=== PATIENT | female | born 1990 | race Caucasian/White ===

== ENCOUNTER → 2016-12-24 | Outpatient (CLI) | payer BC, OTHER ==
[~2016-12-24] MED LIST: ALBU1AER9; PRENTAB26 PO
[2016-12-24 16:23] LABS: BASO % 0.2 %; BASO ABS # 0.02 K/uL (0-0.2); COMPLETE YES; EOS % 1.7 %; HEMATOCRIT 36.7 % (37-47); IG% 0.2 %; LYMPH % 21.9 %; LYMPH ABS # 2.24 K/uL (1.2-3.4); MEAN CELL VOLUME 82.5 fL (80-100); MEAN CORPUSCULAR HEMOGLOBIN 27.2 pg (25-34); MEAN PLATELET VOLUME 9.6 fL (7.4-10.4); MONO % 4.9 %; NEUT % 71.1 %; PLATELET COUNT 332 K/uL (130-400); RED BLOOD COUNT 4.45 M/uL (4.2-5.4); WHITE BLOOD COUNT 10.23 K/uL (4.8-10.8)
[2016-12-25 10:09] LABS: MANUAL MICROSCOPIC REQUIRED? NO; REVIEW REQ? NO; URINE APPEARANCE CLEAR (CLEAR); URINE BILIRUBIN NEG (NEG); URINE COLOR YELLOW; URINE NITRITE NEG (NEG); URINE PH 6.5 (4.5-7.5); UROBILINOGEN NEG (NEG)
[2016-12-28 11:57] LABS: CHLAMYDIA TRACH RNA*** NOT DETECTED (NOT DETECTED); GC (NEIS GONORRHOEAE)RNA** NOT DETECTED (NOT DETECTED)
== END | disposition home or self-care (01) ==
LOC: C.LAB1850 15:26
PROVIDERS: ATTEND Obstetrics & Gynecology
DX: O09.891 Supervision of other high risk pregnancies, first trimester (principal); Z3A.00 Weeks of gestation of pregnancy not specified

== ENCOUNTER → 2017-02-19 | Outpatient (CLI) | payer BC, OTHER ==
[2017-02-19 18:27] LABS: GTGD 50 Grams
[2017-02-23 16:11] LABS: AFP CONCENTRATION 29.6 NG/ML; AFP MULTIPLE OF MEDIAN 1.06; AFPTS GESTATIONAL AGE 16.1 WEEKS; AFPTS INSULIN DEP DIABETIC? NO; AFPTS MATERNAL WT 195 LBS; ALPHA-FETOPROTEIN RACE CAUCASIAN=W; EDD DETERMINED BY ULTRASOUND; HISTORY OF NTD NO; REPEAT SAMPLE? NO
== END | disposition home or self-care (01) ==
LOC: C.LAB 17:17
PROVIDERS: ATTEND Obstetrics & Gynecology
DX: O09.892 Supervision of other high risk pregnancies, second trimester (principal)

== ENCOUNTER → 2017-03-17 | Outpatient (CLI) | payer BC, OTHER | END | disposition home or self-care (01) | LOC: C.LAB1850 07:50 | PROVIDERS: ATTEND Obstetrics & Gynecology | DX: O28.9 Unspecified abnormal findings on antenatal screening of mother (principal) ==

== ENCOUNTER → 2017-05-22 | Outpatient (CLI) | payer BC, OTHER ==
[2017-05-22 18:08] LABS: URINE APPEARANCE CLEAR (CLEAR); URINE BILIRUBIN NEG (NEG); URINE COLOR YELLOW; URINE EPITHELIAL CELL AUTO >30 /lpf (0-5); URINE NITRITE NEG (NEG); URINE PH 7.5 (4.5-7.5); URINE SPECIFIC GRAVITY 1.012 (1.000-1.030); UROBILINOGEN NEG (NEG)
[2017-05-22 18:14] LABS: MANUAL MICROSCOPIC REQUIRED? NO; REVIEW REQ? NO
== END | disposition home or self-care (01) ==
LOC: C.LABSPEC 17:37
PROVIDERS: ATTEND Obstetrics & Gynecology
DX: O09.893 Supervision of other high risk pregnancies, third trimester (principal); Z3A.00 Weeks of gestation of pregnancy not specified

== ENCOUNTER → 2017-05-22 | Outpatient (CLI) | payer BC, OTHER ==
[2017-05-22 17:30] LABS: HEMATOCRIT 35.7 % (37-47)
== END | disposition home or self-care (01) ==
LOC: C.LAB1850 16:33
PROVIDERS: ATTEND Obstetrics & Gynecology
DX: O09.893 Supervision of other high risk pregnancies, third trimester (principal); Z3A.00 Weeks of gestation of pregnancy not specified

== ENCOUNTER → 2017-07-14 | Outpatient (CLI) | payer BC, OTHER | END | disposition home or self-care (01) | LOC: C.LABSPEC 17:23 | PROVIDERS: ATTEND Obstetrics & Gynecology | DX: O09.893 Supervision of other high risk pregnancies, third trimester (principal); Z3A.00 Weeks of gestation of pregnancy not specified ==

== ENCOUNTER 2017-08-10 20:29 | Inpatient (IN) | payer BC, OTHER ==
[~2017-08-10] VITALS: Ht 165.1 cm; Wt 84.0 kg
[2017-08-10] MEDS ORDERED: LACTATED RINGER'S 1000ML 1,000 ML IV PRN (21:20)
[2017-08-10] MEDS ORDERED: LACTATED RINGER'S 1000ML 1,000 ML IV SCH (21:20)
[2017-08-10] MEDS ORDERED: MISOPROSTOLTAB 50 MCG TAB PO ONE (21:30)
[2017-08-10 21:43] LABS: HEMATOCRIT 34.6 % (37-47); MEAN CELL VOLUME 86.9 fL (80-100); MEAN CORPUSCULAR HEMOGLOBIN 28.4 pg (25-34); MEAN CORPUSCULAR HGB CONC 32.7 g/dl (32-36); MEAN PLATELET VOLUME 10.4 fL (7.4-10.4); PLATELET COUNT 270 K/uL (130-400); RED BLOOD COUNT 3.98 M/uL (4.2-5.4); WHITE BLOOD COUNT 10.14 K/uL (4.8-10.8)
[2017-08-10 22:58] VITALS: Ht 165.1 cm; Wt 84.0 kg
[2017-08-11] MEDS ORDERED: BUPIVACAINE 0.25% 30 ML VIAL ONE (00:29)
[2017-08-11] MEDS ORDERED: FENTANYL CITRATE INJ 50 MCG/1 ML 2 ML VIAL ONE (00:30)
[2017-08-11] MEDS ORDERED: EpHEDrine SULFATE INJ 50 MG/ML AMP ONE (00:30)
[2017-08-11] MEDS ORDERED: FENTANYL 2MCG/ML ROPIV 1.25MG/ML 100ML BAG EPI ONE (00:30)
[2017-08-11] MEDS ORDERED: LACTATED RINGER'S 1000ML 500 ML IV PRN ×2 (00:33→01:08)
[2017-08-11] MEDS ORDERED: OXYTOCIN 30 UNITS/500ML NSS IV PRN ×2 (00:45→04:45)
[2017-08-11] MEDS ORDERED: NALOXONE HCL INJ 0.4 MG/1 ML VIAL/CARP IV PRN (01:15)
[2017-08-11] MEDS ORDERED: FENTANYL 2MCG/ML ROPIV 1.25MG/ML 100ML BAG EPI PRN (01:15)
[2017-08-11] MEDS ORDERED: EpHEDrine SULFATE INJ 50 MG/ML AMP IV PRN (01:15)
[2017-08-11] MEDS ORDERED: OXYCODONE/ACETAMINOPHEN 5-325 TAB PO PRN (04:45)
[2017-08-11] MEDS ORDERED: LANOLIN OINT EXT PRN ×2 (04:45)
[2017-08-11] MEDS ORDERED: SUPERCREAM 0.870 % 15GM JAR EXT PRN (04:45)
[2017-08-11] MEDS ORDERED: BENZOCAINE 20% AER SPR 82.5 GM CAN EXT PRN (04:45)
[2017-08-11] MEDS ORDERED: HYDROCORTISONE ACETATE 25 MG SUPP PR PRN (04:45)
--- NOTE | 2017-08-11 06:19 | Anesthesia Procedure Note ---
Anesthesia Epidural Removal Nt Date & Time Aug 11, 2017 at 06:19 Vital Signs Pain Intensity: 0.0 Notes Mental Status: alert / awake / arousable, participated in evaluation Nausea / Vomiting: adequately controlled Pain: adequately controlled Airway Patency, RR, SpO2: stable & adequate BP & HR: stable & adequate Hydration State: stable & adequate Neuraxial Anesthesia: was administered Anesthetic Complications: no major complications apparent, pt satisfied with anesthetic care Epidural: removed without complications, with tip intact
--- NOTE | 2017-08-11 07:16 | DELIVERY SUMMARY ---
DATE OF OPERATION: 08/11/2017 PREOPERATIVE DIAGNOSES: 1. at 40 and 6/7 weeks. 2. Spontaneous rupture of membranes. 3. Normal labor. POSTOPERATIVE DIAGNOSIS: Same. PROCEDURE: 1. Cytotec cervical ripening. 2. Epidural anesthesia. 3. Pitocin augmentation. 4. Normal spontaneous vaginal delivery. SURGEON: Dr. Rhodes. ANESTHESIA: Epidural. ESTIMATED BLOOD LOSS: 300 cc. PROCEDURE: The patient presented to labor and delivery with spontaneous rupture of membranes prior to labor and at that time the cervix was 1, 50% -2 mid and posterior. She was given one Cytotec p.o. for cervical ripening. She then began to contract, underwent an epidural anesthesia at 3-4 cm dilated. Her contractions based so Pitocin augmentation was initiated. She then progressed to complete complete +1 station and pushed over two contractions to deliver a viable female infant in CARSON presentation. There was tight double nuchal chord which was clamped and cut on the perineum and then the rest of the infant was then delivered without difficulty. The infant was immediately vigorous. The nose and mouth were bulb suctioned. The infant was placed on the maternal abdomen for drying and attention. The placenta was delivered spontaneously intact with a 3-vessel cord. Cervix, sulci, rectum and perineum were found to be intact. There was a small split in the skin at the posterior fourchette and was repaired with one byanew-pz-[id number] suture of 3-0 Vicryl. Hemostasis was obtained by dilute Pitocin and fundal massage. Apgars were 8 and 9. Weight pending. Mother and baby doing well at the end of the delivery. I attest to the content of the Intraoperative Record and any orders documented therein. Any exceptions are noted below. MTDD
[2017-08-11 07:20] VITALS: BP 119/72; PULSE 87; TEMP 36.9; O2SAT 98
[2017-08-11] MEDS: PRENATAL VITAMIN TAB PO SCH (08:49)
[2017-08-11] MEDS: DOCUSATE SODIUM 100 MG CAP PO SCH ×2 (08:49→20:09)
[2017-08-11 11:15] VITALS: BP 130/82; PULSE 71; TEMP 36.8; O2SAT 98
[2017-08-11] MEDS: IBUPROFEN 600 MG TAB PO PRN ×3 (11:33→21:22)
[2017-08-11 15:50] VITALS: BP 123/79; PULSE 55; TEMP 36.7; O2SAT 96
[2017-08-11 19:55] VITALS: BP 123/76; PULSE 76; TEMP 36
--- NOTE | 2017-08-11 21:58 | Discharge Instructions ---
Discharge Instructions Date of Service Aug 11, 2017. Admission Reason for Admission: Check Rupture Membranes Discharge Discharge Diagnosis / Problem: DELIVERY VAGINAL Discharge Goals Goal(s): Routine recovery after delivery Medications Continue Dispensed Medications: supercream, dermaplast, tucks, lansinoh Activity Recommendations Activity Limitations: per Instructions/Follow-up section . Instructions / Follow-Up Instructions / Follow-Up ACTIVITY RECOMMENDATIONS: * Gradual return to full activity over the next 2-3 weeks. * No lifting - nothing heavier than baby over the next 2-3 weeks. * Do not engage in vigorous exercise, sexual activity or sports until cleared by your physician. * Do not drive or operate any motorized equipment until cleared by your physician. * You may shower/bathe daily. MEDICATIONS: For discomfort or pain, you may use Acetaminophen (Tylenol), Ibuprofen (Advil), or Naproxen (Aleve) following the package directions. For constipation you may use Colace following the package directions. BREAST CARE: If you are not breast feeding: * Wear a supportive bra 24 hours a day for one to two weeks. * Avoid stimulating your breasts and nipples as much as possible during the first few weeks after delivery. * When taking a shower, have the warm water hit your back, not breasts. * When your breasts feel full, apply ice packs. Usually three to four times a day helps ease the discomfort. * Take a mild pain medication (Tylenol / Motrin) when you are uncomfortable. If breast feeding: * Use breast milk to lubricate nipples. Lansinoh cream may be used for sore nipples. You do not need to remove cream prior to breast feeding. If using a different brand of cream, check the label for directions regarding removal of cream prior to nursing. * Wear a supportive bra. * If having problems with breasts or breast feeding, call a planning consultant or your health care provider. EPISIOTOMY CARE: After delivery, if you have an episiotomy (stitches), the following steps will ease discomfort and aid healing. * For the first 24 hours after delivery, place ice packs next to your episiotomy to help reduce swelling. * After the first 24 hour-period, sitz baths, either portable or in the tub, are suggested. A shower with a shower arm sprayed over the episiotomy may be comforting. * Dulce care should be done after each voiding and bowel movement. Squirt warm water from a plastic bottle over the perineum (region of the body between the anus and urinary opening) and pat dry. * Use Dermoplast to ease discomfort. Shake container. [place] directly over the episiotomy. Place a Tucks on a clean sanitary pad next to your episiotomy. SPECIAL CARE INSTRUCTIONS: When you are discharged from the hospital, it is important for you to follow the instructions listed below: * During the first week at home, you should be able to care for yourself and your baby. In addition, the usual light household activities are encouraged. * Limit your activities to the way you feel. Do not try to clean the house or move furniture. Be sensible. * If you actively engage in sports and have done so up until the time of your delivery, you may resume these activities as soon as you feel able. This may take up to one month or even longer. Use good judgment. * Continue to take your vitamins for at least six weeks after the of your baby. * Your diet need not be limited unless you were on a special diet before your delivery. Breast-feeding mothers need around 2500 calories per day and at least 64-80 ounces of fluid per day (8 to 10 glasses). * You should eat foods from the four major food groups. Crash diets or fad diets are to be avoided. Eating lean meats, fresh fruits and vegetables, low-fat dairy products, high fiber foods and a regular exercise program, will help you get back to your pre- weight without putting your health at risk. * Constipation is sometimes a problem after delivery. Take a mild laxative as needed. If breast feeding, Milk of Magnesia is acceptable to use. You may use a suppository or Fleets enema if no episiotomy. * A daily shower or tub bath is suggested. Be sure to thoroughly and gently dry the perineum. * A bloody vaginal discharge will usually continue until around four weeks post . A small amount of bleeding may continue for as long as six weeks. Vaginal discharge changes from the bright red bleeding after delivery to pink then brownish and finally yellowish-pink before becoming white and disappearing. * Bleeding may increase with activity. Your first period may come in 4-8 weeks. If you are breast feeding, your period may be delayed even longer. * [place] (sex) can begin whenever both you and your partner feel comfortable and do not have any form of genital infection. It is recommended that you wait at least six weeks for internal and external healing to occur. If you have questions, please talk to your health care practitioner. A condom should be used to prevent infection and . * Foreplay, gentle intercourse and lubrication is very important the first several times to prevent pain. A water-based lubricant such as K-Y jelly or Astroglide may be used. * If you have RH negative blood and your baby is RH positive, you will receive RHOGAM by injection prior to discharge. The nurse will give you a card to keep with you that has the date and place that you received RHOGAM after delivery. * During your care, you had a Rubella screen done to check for the presence of rubella antibodies in your blood. If your test was negative, you will receive a Rubella vaccine prior to discharge. This vaccine may cause a fever, soreness at the injection site and flu-like symptoms. If these symptoms persist, notify your health care practitioner. is not advised for one month after a Rubella vaccine. * Verbalizes understanding of car seat law as reviewed with patient nursing. * Car Seat hand-out given and reviewed with patient by nursing. * Shaken baby information reviewed with patient by nursing. Call you doctor if: * Heavy bleeding (saturating several pads an hour) or passing clots the size of your fist. * A fever >101 degrees F (38.3 degrees C) on two occasions four hours apart and /or chills. * Unusual pain in the pelvic or vaginal areas. * "Baby Blues" lasting longer than two weeks. If you have any questions or concerns, call your health care practitioner at . FOLLOW UP VISIT: * Please call the office at to schedule a 6 week examination. It is important you keep this appointment. It is important for you to make arrangements for either yearly or twice yearly check-ups thereafter. Current Hospital Diet Patient's current hospital diet: Regular OB Diet Discharge Diet Recommended Diet: Regular Diet Pending Studies Studies pending at discharge: no Medical Emergencies . Who to Call and When: Medical Emergencies: If at any time you feel your situation is an emergency, please call 911 immediately. . Non-Emergent Contact Non-Emergency issues call your: Primary Care Provider . . "Provider Documentation" section prepared by Carolyn Schuler. . VTE Core Measure Inpt VTE Proph given/why not?: Treatment not indicated Resident Tracking Resident Involvement: Resident Care Provided Care Provided: OB Delivery
[2017-08-11 23:15] VITALS: BP 122/81; PULSE 72; TEMP 36.8
[2017-08-12] MEDS: IBUPROFEN 600 MG TAB PO PRN ×3 (03:54→20:07)
[2017-08-12 03:55] VITALS: BP 119/76; PULSE 74; TEMP 36.9
[2017-08-12] MEDS: ACETAMINOPHEN 325 MG TAB PO PRN ×2 (06:27→13:42)
--- NOTE | 2017-08-12 06:45 | Progress Note ---
Subjective Aug 12, 2017. Subjective conversation w/ patient, physical exam, chart review, lab review Ambulation: ambulating normally Voiding: no voiding problems Passing Gas: Yes Diet Tolerance: Regular Diet Lochia: Moderate Feeding Type: Breast Feeding Pain: controlled Review of Systems Respiratory: No shortness of breath Cardiac: No chest pain Abdomen: No nausea, No vomiting Female : No dysuria Objective Vital Signs Date Time Temp Pulse Resp B/P (MAP) Pulse Ox O2 Delivery O2 Flow Rate FiO2 08/12/17 03:55 36.9 74 18 119/76 (90) Room Air 08/11/17 23:15 36.8 72 18 122/81 (95) Room Air 08/11/17 23:15 Room Air 08/11/17 19:55 36.0 76 18 123/76 (92) Room Air 08/11/17 15:50 36.7 55 18 123/79 (94) 96 Room Air 08/11/17 15:50 96 Room Air 08/11/17 11:15 36.8 71 18 130/82 (98) 98 Room Air 08/11/17 07:20 98 Room Air 08/11/17 07:20 36.9 87 18 119/72 (88) 98 Room Air Physical Exam General Appearance: WELL-APPEARING, WD/WN, NO APPARENT DISTRESS Respiratory/Chest: lungs clear, normal breath sounds, no respiratory distress Cardiovascular: regular rate, rhythm, no gallop, no JVD Abdomen: normal bowel sounds, soft Fundus: Firm, Tender (appropriately tender), Relation to Umbilicus (1 below U) Extremities: no calf tenderness Laboratory Results Last 24 Hours Test 08/12/17 06:31 Assessment and Plan Post- Day#: 1 Continue Routine Care: - Vital Signs reviewed and WNL. - Hgb 11.3 yesterday. Pending. - Blood Type: A+, GBS-, Rubella Immune. - Pt is doing well clinically. - Encourage Ambulation, Monitor and Control pain with Motrin PRN, Resume regular diet, Monitor Lochia - Encourage Breast Feeding. - Pt counselled on discharge instructions. Medically stable. GORDY SCHULER PGY1 FM RESIDENT Resident Physician Supervision Note: I was present with Dr. Schuler during the history and exam. I discussed the case with the resident and agree with the findings and plan as documented in the note. Any exceptions or clarifications are listed here: No complaints. Wants to go home, but unclear they will d/c baby. Instructions reviewed. Will f/ u 6 wks pp. Routine care. Documented By: Rody Harden Resident Tracking Resident Involvement: Resident Care Provided Care Provided: OB Delivery
[2017-08-12 07:12] LABS: HEMATOCRIT 30.2 % (37-47)
[2017-08-12 07:17] VITALS: BP 131/85; PULSE 74; TEMP 36.5; O2SAT 97
[2017-08-12] MEDS: DOCUSATE SODIUM 100 MG CAP PO SCH ×2 (08:21→20:07)
[2017-08-12] MEDS: PRENATAL VITAMIN TAB PO SCH (08:21)
[2017-08-12] MEDS ORDERED: DIPHTHERIA/TETANUS/PERTUSSIS 0.5 ML SYR/VIAL IM. ONE (09:00)
[2017-08-12 16:16] VITALS: BP 125/78; PULSE 80; TEMP 36.7
[2017-08-13 00:25] VITALS: BP 122/76; PULSE 68; TEMP 36.6
--- NOTE | 2017-08-13 06:57 | Progress Note ---
Subjective Aug 13, 2017. Subjective conversation w/ patient, physical exam, chart review, lab review Ambulation: ambulating normally Voiding: no voiding problems Passing Gas: Yes Diet Tolerance: Regular Diet Lochia: Moderate Feeding Type: Breast Feeding Pain: controlled Review of Systems Respiratory: No shortness of breath Cardiac: No chest pain Abdomen: No nausea, No vomiting Female : No dysuria Objective Vital Signs Date Time Temp Pulse Resp B/P (MAP) Pulse Ox O2 Delivery O2 Flow Rate FiO2 08/13/17 00:25 36.6 68 18 122/76 (91) Room Air 08/13/17 00:25 Room Air 08/12/17 16:16 Room Air 08/12/17 16:16 36.7 80 14 125/78 (94) Room Air 08/12/17 07:20 Room Air 08/12/17 07:17 36.5 74 18 131/85 (100) 97 Room Air Physical Exam General Appearance: WELL-APPEARING, WD/WN, NO APPARENT DISTRESS Respiratory/Chest: lungs clear, normal breath sounds, no respiratory distress Cardiovascular: regular rate, rhythm Abdomen: normal bowel sounds, soft Fundus: Firm, Non-Tender, Relation to Umbilicus (2 below U) Extremities: no calf tenderness Assessment and Plan Post- Day#: 2 Continue Routine Care: - Vital Signs reviewed and WNL. - Blood Type: A+, GBS-, Rubella Immune. - Pt is doing well clinically. - Encourage Ambulation, Monitor and Control pain with Motrin PRN, Resume regular diet, Monitor Lochia - Encourage Breast Feeding. - Pt counselled on discharge instructions. Medically stable. GORDY SANTO PGY1 FM RESIDENT Resident Physician Supervision Note: I interviewed and examined the patient. Discussed with Dr. santo and agree with findings and plan as documented in the note. Any exceptions or clarifications are listed here: [None] Documented By: Sal Medeiros Resident Tracking Resident Involvement: Resident Care Provided Care Provided: OB Delivery
[2017-08-13 07:30] VITALS: PULSE 73; TEMP 36.7; O2SAT 98
[2017-08-13] MEDS: PRENATAL VITAMIN TAB PO SCH (08:24)
[2017-08-13] MEDS: DOCUSATE SODIUM 100 MG CAP PO SCH (08:24)
[2017-08-13] MEDS: IBUPROFEN 600 MG TAB PO PRN (08:25)
[2017-08-13 13:05] VITALS: BP_DIAS 76; PULSE 73; TEMP 36.7
== END 2017-08-13 16:00 | disposition home or self-care (01) | DRG 775 ==
LOC: C.LD 20:29 → C.OPB 20:29 → C.LD 21:22 → C.OBG 08-11 06:50
PROVIDERS: ADMIT Obstetrics & Gynecology; ATTEND Obstetrics & Gynecology
PROC: 0HQ9XZZ Repair Perineum Skin, External Approach (ICD-10-PCS; principal; 2017-08-11)
PROC: 10E0XZZ Delivery of Products of Conception, External Approach (ICD-10-PCS; principal; 2017-08-11)
DX: O24.420 Gestational diabetes mellitus in childbirth, diet controlled (principal); O69.1XX0 Labor and delivery complicated by cord around neck, with compression, not applicable or unspecified; O70.0 First degree perineal laceration during delivery; Z3A.40 40 weeks gestation of pregnancy; Z37.0 Single live birth

== ENCOUNTER → 2017-09-22 | Outpatient (CLI) | payer BC, OTHER | END | disposition home or self-care (01) | LOC: C.PAPS 13:48 | PROVIDERS: ATTEND Obstetrics & Gynecology | DX: Z01.419 Encounter for gynecological examination (general) (routine) without abnormal findings (principal) ==

== ENCOUNTER 2019-04-15 08:13 | Inpatient (IN) ==
[2019-04-15] MEDS ORDERED: OXYTOCIN 30 UNITS/500 ML BAG IV PRN ×3 (08:32→18:12)
--- NOTE | 2019-04-15 08:43 | History & Physical Report ---
Date of Service April 15, 2019 Assessment & Plan (1) Gestational diabetes mellitus (GDM) affecting third : monitor blood sugars (2) Post term , 41 weeks: plan pitocin, arom as indicated, epidural on demand. anticipate . History of Present Illness Chief Complaint: induction for postdates Primary Care Provider: Cat Quezada MD Patient is a with iup at 41 weeks who presents for a postdates induction. Patient had a dominguez placed last night and it has not fallen out. Notes some intermittent cramping. Some bleeding from the end of the dominguez. no lof. +fm. complicated by well controlled diet gem. 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 labs--A=/ab-/ri/rprnr/hepb-/hiv-/gc/ct-/sma +/ panorama low risk male,/afp neg/gbs neg Allergies Allergy/AdvReac Type Severity Reaction Status Date / Time No Known Drug Allergies Allergy Unknown NONE Verified 08/10/17 21:23 Home Medications Home Medications Medication Instructions Recorded Confirmed Type albuterol sulfate [ProAir HFA] 2 puff INHALATION Q6H PRN 04/14/19 04/15/19 History vit-iron fum-folic ac 1 tab PO DAILY 04/14/19 04/15/19 History [ Vitamin] Patient History Medical History 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; FOB negative Anxiety Asthma Inhaler PRN [place] teeth removed Surgical History History of tonsillectomy Hx of cholecystectomy Social History Preferred Language: Croatian marital status: Feels Safe at Home: Yes Smoking Status: Never smoker Second Hand Exposure: No Hx Alcohol Use: No Hx Substance Use: No OB History g1--04/14, , 7#5oz, no issues, gdm g2--08/16, , 7#9oz, no issues, 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
[2019-04-15 08:53] LABS: Hematocrit (blood only) 33.3 % (37-47); Hemoglobin 11.3 g/dL (12.0-16.0); Mean Corpuscular Hgb Conc 33.9 g/dL (32-36); Mean Corpuscular Volume 84.9 fL (80-100); Mean Platelet Volume 9.8 fL (7.4-10.4); Platelet Count 248 K/uL (130-400); RDW Coefficient of Variation 13.7 % (11.5-14.5); RDW Standard Deviation 41.9 fL (36.4-46.3); Red Blood Count 3.92 M/uL (4.2-5.4); White Blood Count 10.36 K/uL (4.8-10.8)
[2019-04-15] MEDS: LACTATED RINGER'S 1,000 ML IV PRN ×2 (09:02→12:56)
[2019-04-15] MEDS ORDERED: fentaNYL citrate 100 MCG/2 ML VIAL ONE (12:40)
[2019-04-15] MEDS ORDERED: BUPIVACAINE 0.25% 30 ML VIAL ONE (12:40)
[2019-04-15] MEDS ORDERED: ePHEDrine sulfate 50 MG/ML AMP ONE (12:40)
[2019-04-15] MEDS ORDERED: fentaNYL 2MCG/ML ROPIV 1.25MG/ML 100 ML BAG EPI ONE (12:41)
--- NOTE | 2019-04-15 12:56 | Anesthesiology Consultation ---
Date of Service April 15, 2019 Assessment & Plan (1) Encounter for pre-operative examination: Chart Review Chart Review: Acceptable Risk for Labor Epidural Consults Requested none ASA ASA2 Proposed Anesthesia Anesthesia Type: Labor Epidural Risk / Benefits Reviewed With: PT / POA / Parent / Guardian, Accepts Plan and Informed Consent Obtained History Height/Weight Height: 5 ft 5 in Weight: 93.44 kg Allergies Allergy/AdvReac Type Severity Reaction Status Date / Time No Known Drug Allergies Allergy Unknown NONE Verified 08/10/17 21:23 Medications Home Medications Medication Instructions Recorded Confirmed Last Taken albuterol sulfate [ProAir HFA] 2 puff INHALATION Q6H PRN 04/14/19 04/15/19 04/12/19 19:00 vit-iron fum-folic ac 1 tab PO DAILY 04/14/19 04/15/19 04/13/19 22:30 [ Vitamin] Active Medications Generic Name Dose Route Start Last Admin Trade Name Freq PRN Reason Stop Dose Admin Lactated Ringer's 1,000 mls @ 125 mls/hr 04/15/19 08:32 04/15/19 12:28 Lr IV 04/17/19 08:31 999 mls/hr .Q8H PRN Infusion L&D Protocol Protocol Oxytocin 30 units in 500 mls @ 10 mls/hr 04/15/19 08:43 04/15/19 11:30 Pitocin IV 04/17/19 08:42 0.6 units/hr .Q24H PRN 10 mls/hr Labor Induction/Augmentation Titration Protocol 0.6 UNITS/HR Past Medical History Medical History 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; FOB negative Anxiety Asthma Inhaler PRN [place] teeth removed Exercise / Class Metabolic Activity II 4-5 Yardwork/Stairs/Walk up hill Past Surgical History Surgical History History of tonsillectomy Hx of cholecystectomy Past Anesthesia History No Hx of Anesthesia Complications and No Family Hx of Anesthesia Complications History of PONV No Hx of PONV and No Hx of Motion Sickness Social History Smoking Status: Former smoker Hx Alcohol Use: No Hx Substance Use: No substance use type: does not use Physical Exam Vital Signs Last Vital Signs Temp 97.7 F 04/15/19 11:36 Pulse 78 04/15/19 12:50 Resp 20 04/15/19 11:36 BP 132/81 04/15/19 12:50 Pulse Ox 97 04/15/19 12:50 ENMT Mouth: no dentition abnormality Thyromental Distance: > or= 3.5 Finger Breadths Mallampati Class: II Neck normal visual inspection Respiratory normal respiratory effort Auscultation: lungs clear to auscultation bilaterally Cardiovascular Rate/Rhythm: regular rate and regular rhythm
[2019-04-15] MEDS ORDERED: NALOXONE HCL 1 MG in SODIUM CHLORIDE 0.9% 1000ML 1,000 ML IV PRN (13:17)
[2019-04-15] MEDS ORDERED: ePHEDrine sulfate 50 MG/ML AMP IV PRN (13:17)
[2019-04-15] MEDS ORDERED: NALOXONE HCL 0.4 MG/1 ML VIAL/CARP IV PRN (13:17)
[2019-04-15] MEDS ORDERED: LACTATED RINGER'S 1,000 ML IV PRN (13:17)
[2019-04-15] MEDS ORDERED: ONDANSETRON INJ 2 MG/ML 2 ML VIAL IV PRN (13:17)
[2019-04-15] MEDS ORDERED: NALBUPHINE HCL INJ 10 MG/ML AMP IV PRN (13:17)
[2019-04-15] MEDS ORDERED: fentaNYL 2MCG/ML ROPIV 1.25MG/ML 100 ML BAG EPI PRN (13:17)
[2019-04-15] MEDS ORDERED: DiphenhydrAMINE HCL 50 MG/ML VIAL IV PRN (13:17)
[2019-04-15] MEDS ORDERED: ACETAMINOPHEN 325 MG TAB ONE (16:17)
--- NOTE | 2019-04-15 18:11 | Procedure Note ---
Vaginal Delivery Summary Date of Service April 15, 2019 of live vigorous baby in OA position. Minimal 1cm tear, superficial. No excess force used, gentle delivery. loose nuchal passed over head x 1. Clear fluid. Placenta delivered with traction. Pitocin started NZP=526bp Sponge and instruments correct
[2019-04-15] MEDS ORDERED: BENZOCAINE 20% AER SPR 82.5 GM CAN EXT PRN (18:12)
[2019-04-15] MEDS ORDERED: BISACODYL 10 MG SUPP PR PRN (18:12)
[2019-04-15] MEDS ORDERED: HYDROCORTISONE ACETATE 25 MG SUPP PR PRN (18:12)
[2019-04-15] MEDS ORDERED: SUPERCREAM 0.870% 15 GM JAR EXT PRN (18:12)
[2019-04-15] MEDS ORDERED: DIPHTHERIA/TETANUS/PERTUSSIS 0.5 ML SYR/VIAL IM ONE (18:12)
[2019-04-15] MEDS ORDERED: ACETAMINOPHEN 325 MG TAB PO PRN (18:12)
[2019-04-15] MEDS ORDERED: ALBUTEROL HFA INHALER 8.5 GM INH PRN (18:30)
[2019-04-15 18:37] LABS: Base Excess Cord Arterial Bld -1.4 mEq/L (-9-1.8); CO2 Cord Arterial Blood 36 mmHg (39.1-73.5); HCO3 Cord Arterial Blood 23 mmol/L (19.7-28.5); pH Cord Arterial Blood 7.41 (7.1-7.38)
[2019-04-15 18:43] LABS: Base Excess Cord Venous Blood -1.5 mEq/L (-7.7-1.9); Cord Venous Blood HCO3 22 mmol/L (18.4-26.8); Cord Venous Blood PCO2 35 mmHg (30.4-57.2); Cord Venous Blood PO2 36 mmHg (14.1-43.3); Cord Venous Blood pH 7.42 (7.20-7.44)
--- NOTE | 2019-04-15 18:58 | Anesthesia Procedure Note ---
Date of Service April 15, 2019 Anesthesia Post Epidural Note Vital Signs Vital Signs: Temp Pulse Resp BP Pulse Ox 04/15/19 18:50 83 124/77 051719 18:35 83 20 121/69 19 18:20 96 H 20 119/66 0517/19 18:17 92 H 133/72 19 18:05 94 H 130/72 1719 17:55 95 H 99 19 17:50 79 119/69 97 17 17:45 81 98 1719 17:40 79 97 04/15/19 17:36 81 110/64 1719 17:35 75 98 17 17:30 81 97 17 17:25 86 97 04/15/19 17:20 90 113/58 L 97 04/15/19 17:15 73 97 17 17:10 93 H 97 04/15/19 17:06 80 107/61 04/15/19 17:05 77 97 04/15/19 17:00 79 96 1719 16:55 73 96 19 16:50 90 129/86 97 1719 16:45 87 97 1719 16:40 88 97 1719 16:35 90 126/80 97 1719 16:30 87 95 17/19 16:25 90 96 19 16:21 97.7 F 89 20 127/79 0519 16:20 87 97 1719 16:15 93 H 97 19 16:10 86 96 1719 16:05 86 18 118/75 96 1719 16:00 86 98 1719 15:55 89 97 1719 15:50 91 H 20 119/77 98 1719 15:45 90 97 1719 15:40 88 96 17/19 15:35 86 114/69 96 17/19 15:30 82 96 17/19 15:25 82 96 17/19 15:20 84 18 114/71 97 17/19 15:15 80 96 1719 15:10 75 96 1719 15:05 84 118/72 98 05/17/19 15:00 74 97 05/17/19 14:55 72 97 05/17/19 14:51 77 20 114/70 05/17/19 14:50 81 97 05/17/19 14:45 79 96 05/17/19 14:40 78 95 0517/19 14:35 77 115/61 97 05/17/19 14:30 79 97 0517/19 14:27 80 93 0517/19 14:25 90 97 0517/19 14:24 74 20 115/58 L 0517/ 14:21 75 90/54 L 0517/19 14:20 75 95 05/17/19 14:16 69 94 0517/19 14:15 64 95 0517/19 14:10 61 96 0517/19 14:05 98 H 115/74 97 0517/19 14:02 69 93 0517/ 14:00 82 97 0517/19 13:55 84 97 0517/19 13:50 82 97 05/17/19 13:48 76 18 118/70 0517/19 13:45 86 97 05/17/19 13:42 76 116/70 05/17/19 13:40 84 97 05/17/19 13:35 75 98 05/17/19 13:34 88 120/74 05/17/19 13:31 72 119/66 05/17/19 13:30 80 98 05/17/19 13:28 74 116/67 05/17/19 13:25 86 121/69 98 05/17/19 13:22 76 117/62 05/17/19 13:20 80 96 05/17/19 13:19 71 20 119/59 L 05/19 13:16 98.2 F 89 20 120/71 05/17/19 13:15 78 98 05/17/19 13:14 98 H 132/66 0517/19 13:10 66 123/78 98 05/17/19 13:05 74 98 05/17/19 13:00 76 99 05/17/19 12:55 72 99 05/17/19 12:50 78 132/81 97 05/17/19 12:27 74 20 128/77 05/17/19 11:36 97.7 F 72 20 123/80 04/15/19 10:33 74 20 123/74 04/15/19 09:32 75 20 129/81 04/15/19 08:25 97.9 F 100 H 20 135/79 04/15/19 08:19 100 H 135/79 04/15/19 08:18 97.9 F 20 Pain Intensity Bilateral Abdomen: Pain Intensity: 0 Notes Mental Status: alert / awake / arousable and participated in evaluation Nausea / Vomiting: adequately controlled Pain: adequately controlled Airway Patency, RR, SpO2: stable & adequate BP & HR: stable & adequate Hydration State: stable & adequate Neuraxial Anesthesia: was administered and sensory block is resolving Anesthetic Complications: no major complications apparent and Pt Satisfied with anesthetic care Epidural: Removed without complications and With tip intact
[2019-04-15] MEDS: IBUPROFEN 600 MG TAB PO PRN (19:18)
[2019-04-15] MEDS: DOCUSATE SODIUM 100 MG CAP PO SCH (20:39)
[2019-04-16] MEDS: IBUPROFEN 600 MG TAB PO PRN ×3 (01:55→16:59)
[2019-04-16] MEDS: OXYCODONE/ACETAMINOPHEN 5mg/325mg TAB PO PRN ×3 (04:29→23:14)
--- NOTE | 2019-04-16 07:47 | Obstetrical Progress Note ---
Date of Service April 16, 2019 Assessment & Plan (1) Status post vaginal delivery: Patient is a 28 year old PPD 1 s/p -Vital signs WNL bp 119/64 T36.6, -Hemoglobin was 11.3 on admission. no si/sx of anemia. -Pt is doing clinically well -Continue to encourage ambulation as tolerated, Monitor and control pain with motrin prn, Continue diet as tolerated. -Continue to support and encourage breast feeding -Routine care Supervising Physician Co-Signing Physician Notes Resident Physician Supervision Note: I interviewed and examined the patient. Discussed with Dr. Dr. Alcocer and agree with findings and plan as documented in the note. Any exceptions or clarifications are listed here: [None] Documented By: Bandar Medeiros MD, FACOG Subjective Pt sitting up in bed this morning in no acute distress with FOB sleeping in the bed next to her. Patient is tolerating her diet, ambulating, passing gas and voiding, still no bm. Reports moderate lochia. Denies H/A, chest pain, palpitations and uti syx. Answered all questions, no concerns at present, pain is well controlled Physical Exam Physical Exam: Constitutional: WD/WN, vitals as above no acute distress Eyes: normal visual martinez by confrontation Neck: normal visual inspection Extremities: no calf tenderness Gastrointestinal (Abdomen): Uterus firm and below the umbilicus Results & Data Vital Signs (Past 12 Hours) Vital Signs Temp Pulse Pulse Resp BP BP 04/16/19 04:30 36.6 C 82 18 119/64 04/16/19 00:10 37 C 73 18 118/69 04/15/19 21:40 36.9 C 78 18 113/69 04/15/19 20:35 37.1 C 88 18 127/69 04/15/19 20:20 90 18 119/66 04/15/19 20:05 86 119/65 04/15/19 19:50 82 18 123/68 Laboratory Results 04/15/19 04/15/19 04/15/19 Range/Units 18:00 18:00 09:00 WBC (4.8-10.8) K/uL RBC (4.2-5.4) M/uL Hgb (12.0-16.0) g/dL Hct (37-47) % MCV (80-100) fL MCH (25-34) pg MCHC (32-36) g/dL RDW Std Deviation (36.4-46.3) fL RDW Coeff of Henrry (11.5-14.5) % Plt Count (130-400) K/uL MPV (7.4-10.4) fL Cord ABG pH 7.41 H (7.1-7.38) Cord ABG pCO2 36 L (39.1-73.5) mmHg Cord ABG pO2 37.0 H (4.1-31.7) % Cord ABG HCO3 23 (19.7-28.5) mmol/L Cord ABG Base Excess -1.4 (-9-1.8) mEq/L Cord ABG O2 Sat 78.0 H (<60) % Cord VBG pH 7.42 (7.20-7.44) Cord VBG pCO2 35 (30.4-57.2) mmHg Cord VBG pO2 36 (14.1-43.3) mmHg Cord VBG HCO3 22 (18.4-26.8) mmol/L Cord VBG Base Excess -1.5 (-7.7-1.9) mEq/L Cord VBG O2 Sat 76.0 H (<68) % Barometric Pressure 728.7 728.8 mm/Hg Blood Gas Comments BRYAN BRYAN POC Glucose 97 (70-99) 04/15/19 Range/Units 08:40 WBC 10.36 (4.8-10.8) K/uL RBC 3.92 L (4.2-5.4) M/uL Hgb 11.3 L (12.0-16.0) g/dL Hct 33.3 L (37-47) % MCV 84.9 (80-100) fL MCH 28.8 (25-34) pg MCHC 33.9 (32-36) g/dL RDW Std Deviation 41.9 (36.4-46.3) fL RDW Coeff of Henrry 13.7 (11.5-14.5) % Plt Count 248 (130-400) K/uL MPV 9.8 (7.4-10.4) fL Cord ABG pH (7.1-7.38) Cord ABG pCO2 (39.1-73.5) mmHg Cord ABG pO2 (4.1-31.7) % Cord ABG HCO3 (19.7-28.5) mmol/L Cord ABG Base Excess (-9-1.8) mEq/L Cord ABG O2 Sat (<60) % Cord VBG pH (7.20-7.44) Cord VBG pCO2 (30.4-57.2) mmHg Cord VBG pO2 (14.1-43.3) mmHg Cord VBG HCO3 (18.4-26.8) mmol/L Cord VBG Base Excess (-7.7-1.9) mEq/L Cord VBG O2 Sat (<68) % Barometric Pressure mm/Hg Blood Gas Comments POC Glucose (70-99) Medications Administered Current Inpatient Medications Acetaminophen (Tylenol) 650 mg PO Q6H PRN PRN Reason: Pain/CONNELLY/Fever Stop: 05/15/19 18:11 Last Admin: 04/15/19 22:35 Dose: 650 mg Documented by: Albuterol (Proair Hfa) 2 puffs INH Q6H PRN PRN Reason: Shortness Of Breath Or Wheezing Stop: 05/15/19 18:29 Benzocaine (Dermoplast Pain Relieving [place]) 1 appln EXT PRN PRN PRN Reason: Perineal Discomfort Stop: 05/15/19 18:11 Last Admin: 04/15/19 20:40 Dose: 1 appln Documented by: Bisacodyl (Dulcolax) 5 mg PO 1999 [facility] Stop: 04/16/19 20:01 Bisacodyl (Dulcolax) 10 mg MO DAILY PRN PRN Reason: No BM on 2nd post- day Stop: 05/15/19 18:11 Cocaine HCl (Supercream 0.870%) 1 gm EXT BID PRN PRN Reason: Hemorrhoidal Inflammation Stop: 04/29/19 18:11 Docusate Sodium (Colace) 100 mg PO BID [facility] Stop: 05/15/19 20:59 Last Admin: 04/15/19 20:39 Dose: 100 mg Documented by: Hydrocortisone (Anusol Hc) 25 mg MO BID PRN PRN Reason: Hemorrhoidal Inflammation Stop: 05/15/19 18:11 Oxytocin (Pitocin) 30 units in 500 mls @ 333.333 mls/hr IV .Q1H30M PRN; Protocol PRN Reason: Bleeding Control Stop: 05/15/19 18:11 Ibuprofen (Motrin) 600 mg PO Q4H PRN PRN Reason: Pain/CONNELLY/Cramping/Fever Stop: 05/15/19 18:11 Last Admin: 04/16/19 01:55 Dose: 600 mg Documented by: Oxycodone/Acetaminophen (Percocet 5mg/325mg) 1 tab PO Q4H PRN PRN Reason: Pain not relieved by... Stop: 04/29/19 18:11 Last Admin: 04/16/19 04:29 Dose: 1 tab Documented by: Mychalat Multivit/Jerauld/Iron/Folic Ac ( Vitamin) 1 tab PO QAM [facility] Stop: 05/16/19 08:59 Resident Activity Tracking Resident Involvement: Resident Care Provided Care Provided: Adult Hospital Medicine
[2019-04-16 07:52] LABS: Hematocrit (blood only) 35.5 % (37-47); Hemoglobin 11.7 g/dL (12.0-16.0); Mean Corpuscular Volume 86.8 fL (80-100); Mean Platelet Volume 10.1 fL (7.4-10.4); Platelet Count 212 K/uL (130-400); RDW Coefficient of Variation 13.7 % (11.5-14.5); RDW Standard Deviation 43.4 fL (36.4-46.3); Red Blood Count 4.09 M/uL (4.2-5.4); White Blood Count 12.47 K/uL (4.8-10.8)
[2019-04-16] MEDS: PRENATAL VITAMIN 1 TAB PO SCH (08:19)
[2019-04-16] MEDS: DOCUSATE SODIUM 100 MG CAP PO SCH ×2 (08:19→21:20)
[2019-04-16] MEDS ORDERED: NON-FORMULARY MEDICATION (Prenatal Vit-Iron Fum-Folic Ac [Prenatal Vitamin] 1 TAB) PO SCH (09:00)
[2019-04-16] MEDS ORDERED: BISACODYL 5 MG TABEC PO SCH (20:00)
[2019-04-17 06:24] LABS: Hematocrit (blood only) 32.9 % (37-47); Hemoglobin 10.7 g/dL (12.0-16.0)
--- NOTE | 2019-04-17 09:05 | Obstetrical Progress Note ---
Date of Service April 17, 2019 Assessment & Plan (1) Status post vaginal delivery: Doing well. Routine pp care. Plan d/c and instructions given. (2) Anxiety: Patient will see FP in immediate pp period. We will also schedule an appt with her in 10 -14 days for f/u as well. Subjective Ambulation: ambulating normally Passing Gas:: Yes Diet Tolerance:: regular diet Lochia:: Small Feeding Type:: breast feeding Patient notes she had a rough day yesterday. Nursing noted that she was crying alot. Today she feels better. she admits she has an issue with anxiety and it was worse pp with her last baby. She notes she was given a med but never took it as she got . She notes her FP is aware and she will be seeing her in the immediate pp period to discuss. She admits she had lots of visitors yesterday which didn't help. She notes she had some mild tension type CONNELLY yes terday. Physical Exam Vital Signs (Past 24 Hours) Last Vital Signs Temp 98.2 F 04/16/19 23:15 Pulse 73 04/16/19 23:15 Resp 18 04/16/19 23:15 BP 133/83 04/16/19 23:15 Pulse Ox 97 04/16/19 16:00 Constitutional WD/WN, vitals as above Cardiovascular Extremities: no calf tenderness and no edema Gastrointestinal (Abdomen) soft, nt, nd, ff/nt at u
[2019-04-17] MEDS: IBUPROFEN 600 MG TAB PO PRN (09:14)
[2019-04-17] MEDS: PRENATAL VITAMIN 1 TAB PO SCH (09:14)
[2019-04-17] MEDS: DOCUSATE SODIUM 100 MG CAP PO SCH (09:14)
[2019-04-17 09:59] VITALS: BP 126/77; PULSE 78; TEMP 98.1; O2SAT 95
== END 2019-04-17 11:00 | disposition home or self-care (01) | DRG 807 ==
LOC: 4S1 08:13 → 4N 21:30

== ENCOUNTER 2022-06-06 13:09 | Inpatient (IN) ==
[2022-06-06] MEDS ORDERED: LACTATED RINGER'S 1,000 ML IV PRN (13:36)
[2022-06-06] MEDS ORDERED: OXYTOCIN 30 UNITS/500 ML BAG IV PRN ×2 (13:36→15:31)
[2022-06-06 14:01] LABS: Hematocrit (blood only) 31.8 % (34.1-44.9); Hemoglobin 10.3 g/dl (12.0-16.0); Mean Corpuscular Hemoglobin 26.8 pg (25.0-34.0); Mean Corpuscular Hgb Conc 32.4 g/dL (32.0-36.0); Mean Corpuscular Volume 82.8 fL (80.0-100.0); Platelet Count 244 K/uL (130-400); RDW Coefficient of Variation 15.7 % (11.5-14.5); RDW Standard Deviation 46.5 fL (36.4-46.3); Red Blood Count 3.84 M/uL (3.93-5.22); White Blood Count 11.17 K/ul (4.8-10.8)
[2022-06-06 14:25] LABS: Alanine Aminotransferase 12 U/L (7-52); Albumin Globulin Ratio 1.1 (0.9-2); Albumin Level 3.3 gm/dl (3.4-5.0); Alkaline Phosphatase 163 U/L (34-104); Anion Gap 7 (3-11); Aspartate Aminotransferase 13 U/L (13-39); BUN Creatinine Ratio 15.8 (10-20); Bilirubin,Total 0.3 mg/dl (0.2-1.0); Blood Urea Nitrogen 9 mg/dl (6-23); Calcium 8.5 mg/dl (8.5-10.1); Carbon Dioxide 19 mmol/L (21-32); Chloride 108 mmol/L (98-107); Est GFR (African American) 141.2 ml/min; Est GFR (Non-African American) 121.8 ml/min; Globulin 2.9 gm/dl (2.5-4.0); Glucose 94 mg/dl (70-99(Fasting)); Potassium 3.7 mmol/L (3.5-5.1); Sodium 134 mmol/L (136-145); Total Protein 6.2 gm/dl (6.0-8.3)
--- NOTE | 2022-06-06 15:41 | Labor Progress Brief Note ---
Date of Service June 06, 2022 Subjective Patient sent from office for elevated blood pressure and ongoing contractions. 31yo at 39w1d, visited L&D last night with contractions and was found not to be in labor. During her stay on L&D, multiple elevated blood pressures were recorded. She was discharged to home. She then presented to the office today and was again found to have elevated blood pressure and continued to complain of contractions. Her cervix was not significantly changed. She had trace urinary protein. There are no current s/sx of preeclampsia but Dr. Meneses tells me the patient did admit to floaters in her vision at times in the past week. The patient was sent to L&D for further evaluation where her first BP was elevated but subsequent measurements were below the HTN range. She had CBC/CMP that were normal. No CONNELLY, RUQ pain or vision change. No VB or LOF, continues yajaira irregularly but very uncomfortable during the contractions. Assessment & Plan (1) Gestational hypertension: Plan: Patient has met criteria for gestational hypertension and is indicated for induction of labor. This was recommended to her and she gladly agreed to proceed. Given her cervical exam per Dr. Meneses in the office today I recommended a dominguez balloon be placed, which she accepted; see procedure note for placement. Will use low-dose pitocin while balloon is in place, then transition to typical pitocin titration. Epidural on request, AROM when able. (2) Insulin controlled gestational diabetes mellitus (GDM) during : Plan: Q1h glucose checks, insulin/glucose infusion if merited. Physical Exam Constitutional: WD/WN, vitals as above + in distress (with contractions) Eyes: PERRL, conjunctivae normal, anicteric sclerae ENMT: external ear and nose normal, oropharynx normal Neck: supple Respiratory: normal respiratory effort and able to speak in complete sentences; no respiratory distress Cardiovascular: Rate/Rhythm: regular rate and regular rhythm Gastrointestinal (Abdomen): Gravid / AGA, nontender Musculoskeletal: no cyanosis or clubbing, extremities motor strength 5/5 Skin: no rashes, warm and dry Neurologic: patellar DTR's 2+ bilat, sensation intact Psychiatric: A+Ox3, euthymic affect Genitourinary: Speculum/Bimanual Exam: no vaginal lesions, no vaginal bleeding and uterus nontender OB Exam Abdomen: + vertex and + estimated weight (7) Manual OB Exam: + cervical dilation 2 cm, + cervical effacement 50%, + station -2 and + amniotic fluid (No leaking evident) OB Exam Monitor Tracing: + external FHT monitor used, + external uterine monitor used (irreg ctx) and + category I Results & Data ([place]) Vital Signs (Past 12 Hours) Vital Signs Temp Pulse Resp BP 06/06/22 14:44 98.2 F 84 20 132/77 06/06/22 13:54 84 132/77 06/06/22 13:42 85 125/71 06/06/22 13:32 88 128/75 06/06/22 13:22 90 141/85 H Coding Level of Care Code None Diagnoses Gestational hypertension O13.9 Insulin controlled gestational diabetes mellitus (GDM) during O24.414
[2022-06-06] MEDS ORDERED: ePHEDrine sulfate 50 MG/ML AMP ONE (16:41)
[2022-06-06] MEDS ORDERED: fentaNYL citrate 100 MCG/2 ML VIAL ONE (16:41)
[2022-06-06] MEDS ORDERED: BUPIVACAINE 0.25% 30 ML VIAL ONE (16:41)
[2022-06-06] MEDS ORDERED: SODIUM CHLORIDE 0.9% INJ 10 ML VIAL ONE (16:41)
[2022-06-06] MEDS ORDERED: LIDOCAINE 2%/EPINEPHRINE 1:200,000 20 ML SDV ONE (16:42)
[2022-06-06] MEDS ORDERED: fentaNYL 2MCG/ML ROPIVACAINE 1.25MG/ML 100 ML BAG EPI ONE (16:42)
[2022-06-06] MEDS ORDERED: ePHEDrine sulfate 50 MG/ML AMP IV PRN (17:24)
[2022-06-06] MEDS ORDERED: NALOXONE HCL 1 MG in SODIUM CHLORIDE 0.9% 1000ML 1,000 ML IV PRN (17:24)
[2022-06-06] MEDS ORDERED: NALBUPHINE HCL INJ 10 MG/ML AMP IV PRN (17:24)
[2022-06-06] MEDS ORDERED: diphenhydrAMINE 50 MG/ML VIAL IV PRN (17:24)
[2022-06-06] MEDS ORDERED: fentaNYL 2MCG/ML ROPIVACAINE 1.25MG/ML 100 ML BAG EPI PRN (17:24)
[2022-06-06] MEDS ORDERED: ONDANSETRON INJ 2 MG/ML 2 ML VIAL IV PRN (17:24)
[2022-06-06] MEDS ORDERED: PROMETHAZINE HCL 6.25 MG in SODIUM CHLORIDE 0.9% 50 ML IV PRN (17:24)
[2022-06-06] MEDS ORDERED: NALOXONE HCL 0.4 MG/1 ML VIAL/CARP IV PRN (17:24)
--- NOTE | 2022-06-06 17:24 | Anesthesiology Consultation ---
Date of Service June 06, 2022 Assessment & Plan Chart Review Chart Review: Acceptable Risk for Surgery and Patient NOT seen in Pre Admission Testing Consults Requested none ASA ASA2 Proposed Anesthesia Anesthesia Type: Labor Epidural Risk / Benefits Reviewed With: PT / POA / Parent / Guardian, Accepts Plan and Informed Consent Obtained History Height/Weight Height: 5 ft 5 in Weight: 103.058 kg Allergies Allergy/AdvReac Type Severity Reaction Status Date / Time bupropion [From Wellbutrin] AdvReac Mild Unknown Verified 06/06/22 14:36 Medications Home Medications Medication Instructions Recorded Confirmed Last Taken albuterol sulfate 90 mcg/actuation 2 puff INHALATION Q6H PRN 04/14/19 06/06/22 05/30/22 12:00 aerosol inhaler (ProAir HFA) vitamins-iron fumarate 27 1 tab PO DAILY 04/14/19 06/06/22 06/05/22 20:00 mg iron-folic acid 0.8 mg tablet ( Vitamin) fluticasone furoate 100 1 inh INHALATION DAILY 10/30/21 06/06/22 Unknown mcg-vilanterol 25 mcg/dose inhalation powder (Breo Ellipta) insulin NPH isoph U-100 human 100 10 unit SUBCUT QPM #15 ml 05/05/22 06/06/22 Unknown unit/mL (3 mL) subcutaneous pen (Novolin N Flexpen) insulin aspart U-100 100 unit/mL 8 unit SUBCUT TID #15 ml 05/05/22 06/06/22 Unknown (3 mL) subcutaneous pen (Novolog Flexpen U-100 Insulin aspart) pen needle, diabetic 32 gauge x #150 ea 05/05/22 06/06/22 Unknown 5/32" (BD Ultra-Fine Taty Pen Needle) ondansetron HCl 4 mg tablet 4 mg PO Q6H PRN #20 tab 05/19/22 06/06/22 Unknown Breo Ellipta 1 puff PO DAILY 06/06/22 06/06/22 04/12/22 12:00 sertraline 50 mg tablet 100 mg PO DAILY 06/06/22 06/06/22 06/05/22 20:00 Active Medications Generic Name Dose Route Start Last Admin Trade Name Freq PRN Reason Stop Dose Admin Lactated Ringer's 1,000 mls @ 125 mls/hr 06/06/22 13:36 06/06/22 14:16 Lr IV 06/08/22 13:35 125 mls/hr .Q8H PRN Administration L&D Protocol Protocol Oxytocin 30 units in 500 mls @ 3 mls/hr 06/06/22 15:31 06/06/22 16:12 Pitocin IV 06/08/22 15:30 0.18 units/hr .Q24H PRN 3 mls/hr Labor Induction/Augmentation Titration Protocol 0.18 UNITS/HR Past Medical History Medical History (Updated 06/06/22 @ 15:40 by Chantelle Zaidi MD) Anxiety Asthma Inhaler PRN 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; FOB negative Elective induction of labor planned Exercise / Class Metabolic Activity II 4-5 Yardwork/Stairs/Walk up hill Past Family History Family History Father Heart disease Hypertension Diabetes Mother Diabetes Other Kidney disease Past Surgical History Surgical History (Updated 10/30/21 @ 09:02 by Fatimah Enriquez) History of tonsillectomy Hx of cholecystectomy [place] teeth removed Past Anesthesia History No Hx of Anesthesia Complications and No Family Hx of Anesthesia Complications History of PONV No Hx of PONV and No Hx of Motion Sickness Social History Smoking Status: Former smoker tobacco type: cigarettes Hx Alcohol Use: No Hx Substance Use: No substance use type: does not use Physical Exam Vital Signs Last Vital Signs Temp 36.8 C 06/06/22 14:44 Pulse 85 06/06/22 17:23 Resp 20 06/06/22 14:44 BP 122/70 06/06/22 17:23 Pulse Ox 99 06/06/22 17:19 ENMT Mouth: no dentition abnormality Thyromental Distance: > or= 3.5 Finger Breadths Mallampati Class: II Neck normal visual inspection Respiratory normal respiratory effort Auscultation: lungs clear to auscultation bilaterally Cardiovascular Rate/Rhythm: regular rate and regular rhythm Psychiatric Orientation: alert Testing Laboratory Results 06/06/22 13:50 06/06/22 13:50 06/06/22 06/06/22 06/06/22 16:52 15:20 14:20 POC Glucose 82 83 87
--- NOTE | 2022-06-06 18:05 | Labor Progress Brief Note ---
Date of Service June 06, 2022 Subjective Comfortable with epidural Assessment & Plan (1) Gestational hypertension: Plan: Continue pitocin, titrate to Q2m pattern Continue hourly BG checks, in range so far Physical Exam Genitourinary: /-2 ROM during exam for particulate meconium FHT Cat 1 [place] Q2-4 Results & Data ([facility] [place]) Vital Signs (Past 12 Hours) Vital Signs Temp Pulse Resp BP Pulse Ox 06/06/22 17:59 80 99 06/06/22 17:54 88 100 06/06/22 17:53 83 134/73 06/06/22 17:49 86 100 06/06/22 17:44 76 126/69 99 06/06/22 17:39 79 99 06/06/22 17:34 77 126/72 99 06/06/22 17:29 87 99 06/06/22 17:24 84 98 06/06/22 17:23 85 122/70 06/06/22 17:21 89 118/58 L 06/06/22 17:19 82 121/61 99 06/06/22 17:15 76 135/81 06/06/22 17:14 75 98 06/06/22 17:09 76 99 06/06/22 17:04 77 98 06/06/22 16:59 76 99 06/06/22 16:54 64 99 06/06/22 16:49 73 98 06/06/22 16:44 65 99 06/06/22 16:39 82 98 06/06/22 14:44 98.2 F 84 20 132/77 06/06/22 13:54 84 132/77 06/06/22 13:42 85 125/71 06/06/22 13:32 88 128/75 06/06/22 13:22 90 141/85 H Coding Level of Care Code None Diagnoses Gestational hypertension O13.9
[2022-06-06] MEDS ORDERED: ACETAMINOPHEN 325 MG TAB PO STA (19:15)
--- NOTE | 2022-06-06 23:47 | Anesthesia Procedure Note ---
Date of Service June 06, 2022 Anesthesia Post Epidural Note Vital Signs Vital Signs: Temp Pulse Resp BP Pulse Ox 37.0 C 92 H 18 129/67 99 06/06/22 21:09 06/06/22 23:33 06/06/22 23:03 06/06/22 23:33 06/06/22 22:04 Notes Mental Status: alert / awake / arousable Nausea / Vomiting: adequately controlled Pain: adequately controlled Airway Patency, RR, SpO2: stable & adequate BP & HR: stable & adequate Hydration State: stable & adequate Neuraxial Anesthesia: was administered and sensory block is resolving Anesthetic Complications: no major complications apparent and Pt Satisfied with anesthetic care Epidural: Removed without complications and With tip intact
[2022-06-07] MEDS ORDERED: IBUPROFEN 600 MG TAB PO ONE (00:37)
--- NOTE | 2022-06-07 00:42 | Delivery Summary ---
Vaginal Delivery Summary Date of Service June 07, 2022 Vaginal Delivery Summary DIAGNOSES: 1. Jiang intrauterine at 39w2d gestation. 2. Induction of Labor due to Gestational Hypertension. 3. Group B Streptococcus Neg. PROCEDURE: Spontaneous vaginal delivery without laceration. SURGEON: Chantelle Zaidi MD. DRAFTER CHIEF DESIGN: None. ESTIMATED BLOOD LOSS: 200 mL. COMPLICATIONS: None. PLACENTA: Spontaneous and intact with a 3-vessel cord. DISPOSITION: Stable to labor and delivery. DESCRIPTION: The patient pushed well and brought the head to in DOA position. The infant's head was allowed to deliver with contraction force and no further active pushing, with the perineum protected during this time. There was a tight nuchal cord, which was unable to be reduced and the infant delivered through it. The shoulders and body delivered without any difficulty, and the was placed on the maternal abdomen briefly to allow cord clamping. The cord was doubly clamped by the MD and then cut by the FOB. The was limp and not making significant respiratory effort, and was taken to the warmer for resuscitation; see pediatric chart for details. Initial Apgars assigned as 2 and 7. The placenta delivered spontaneously and was noted to be intact and with a 3VC, heavily meconium-stained. The cervix, vagina and perineum were examined and were found to be without defect requiring repair. The fundus was firm and lochia minimal immediately after delivery. [facility] Vaginal Delivery Charge Vaginal Delivery Codes: 13202 global code for the antepartum, delivery, and post-
[2022-06-07] MEDS ORDERED: diphenhydrAMINE Capsule 25 MG CAP PO ONE (00:57)
[2022-06-07] MEDS ORDERED: Nursing to Pharmacy Communication SCH (01:00)
[2022-06-07] MEDS ORDERED: HYDROCORTISONE ACETATE 25 MG SUPP PR PRN (03:44)
[2022-06-07] MEDS ORDERED: DIPHTHERIA/TETANUS/PERTUSSIS 0.5 ML SYR/VIAL IM ONE (03:44)
[2022-06-07] MEDS ORDERED: BENZOCAINE 20% AER SPR 82.5 GM CAN EXT PRN (03:44)
[2022-06-07] MEDS ORDERED: ACETAMINOPHEN 325 MG TAB ONE (03:45)
--- NOTE | 2022-06-07 07:08 | Obstetrical Progress Note ---
Date of Service June 07, 2022 Assessment & Plan (1) state: Recovering well PPD#1, anticipate d/c tomorrow morning. (2) Gestational hypertension: BP mostly normalized, continue to monitor. No s/sx preeclampsia at this time. (3) Insulin controlled gestational diabetes mellitus (GDM) during : Subjective Ambulation: ambulating normally Voiding: no voiding problems Passing Gas:: Yes Diet Tolerance:: regular diet Lochia:: Small Feeding Type:: breast feeding Physical Exam Constitutional WD/WN, vitals as above Eyes PERRL, conjunctivae normal, anicteric sclerae Neck normal visual inspection Respiratory normal respiratory effort and able to speak in complete sentences; no respiratory distress and no labored breathing Cardiovascular Rate/Rhythm: regular rate and regular rhythm Extremities: no edema Chest (Breasts) Chest: normal inspection of chest Gastrointestinal (Abdomen) Inspection/Auscultation: abdomen normal to inspection Soft, postgravid Psychiatric A+Ox3, euthymic affect Genitourinary OB Exam Abdomen: + fundal height Fundus: + firm and + relation to umbilicus (fundus just below umbilicus); not tender Results & Data ([place]) Vital Signs (Past 12 Hours) Vital Signs Temp Pulse Pulse Resp BP BP Pulse Ox 06/07/22 03:35 98.1 F 89 16 133/89 97 06/07/22 00:50 97.9 F 92 H 18 146/81 H 97 06/07/22 00:03 99.1 F 93 H 18 133/75 06/06/22 23:48 101 H 133/75 06/06/22 23:33 92 H 18 129/67 06/06/22 23:18 96 H 134/74 06/06/22 23:03 97 H 18 128/80 06/06/22 22:48 82 18 123/67 06/06/22 22:33 82 18 133/68 06/06/22 22:18 97 H 20 141/67 H 06/06/22 22:04 99 H 99 06/06/22 22:02 96 H 20 133/66 06/06/22 21:59 96 H 99 06/06/22 21:55 92 H 140/69 06/06/22 21:54 90 99 06/06/22 21:51 20 06/06/22 21:49 108 H 100 06/06/22 21:44 81 98 07/08/22 21:40 90 110/61 06/06/22 21:39 89 98 06/06/22 21:34 86 100 06/06/22 21:30 18 06/06/22 21:29 94 H 99 06/06/22 21:26 86 128/78 06/06/22 21:24 98 H 99 06/06/22 21:19 79 98 06/06/22 21:14 89 99 06/06/22 21:10 77 133/75 06/06/22 21:09 98.6 F 75 100 06/06/22 21:04 78 98 06/06/22 21:00 18 06/06/22 20:59 83 99 06/06/22 20:55 76 133/79 06/06/22 20:54 77 99 06/06/22 20:49 75 99 06/06/22 20:44 74 99 06/06/22 20:40 78 135/77 06/06/22 20:39 71 99 06/06/22 20:34 71 97 06/06/22 20:30 20 06/06/22 20:29 93 H 100 06/06/22 20:26 71 127/75 06/06/22 20:24 79 99 06/06/22 20:19 68 99 06/06/22 20:14 81 100 06/06/22 20:11 77 136/87 06/06/22 20:09 80 98 06/06/22 20:04 73 98 06/06/22 20:00 18 06/06/22 19:59 85 99 06/06/22 19:56 76 137/87 06/06/22 19:54 82 99 06/06/22 19:49 78 98 06/06/22 19:44 86 99 06/06/22 19:40 67 06/06/22 19:39 75 98 06/06/22 19:34 85 99 06/06/22 19:30 20 06/06/22 19:29 84 99 06/06/22 19:25 87 136/87 06/06/22 19:24 81 98 06/06/22 19:19 81 99 06/06/22 19:14 82 99 06/06/22 19:10 79 134/80 06/06/22 19:09 77 99
[2022-06-07] MEDS: DOCUSATE SODIUM 100 MG CAP PO SCH ×2 (07:50→20:52)
[2022-06-07] MEDS: PRENATAL VITAMIN 1 TAB PO SCH (07:50)
[2022-06-07] MEDS: IBUPROFEN 600 MG TAB PO PRN ×3 (07:50→19:44)
[2022-06-07] MEDS ORDERED: SERTRALINE HCL 100 MG TABLET PO SCH ×2 (09:00→21:00)
[2022-06-07] MEDS: ACETAMINOPHEN 325 MG TAB PO PRN ×2 (09:51→15:54)
[2022-06-07] MEDS: FLUTICASONE/VILANTEROL 100/25MCG 14 PUFFS/INHALER INH SCH (13:25)
[2022-06-07] MEDS: oxyCODONE HCL IR 5 MG TAB (IMMEDIATE RELEASE) PO PRN (17:19)
[2022-06-08] MEDS: oxyCODONE HCL IR 5 MG TAB (IMMEDIATE RELEASE) PO PRN ×3 (00:07→11:18)
[2022-06-08 06:38] LABS: Hematocrit (blood only) 31.6 % (34.1-44.9); Mean Corpuscular Hemoglobin 26.5 pg (25.0-34.0); Mean Corpuscular Hgb Conc 31.6 g/dL (32.0-36.0); Mean Corpuscular Volume 83.8 fL (80.0-100.0); Mean Platelet Volume 10.4 fL (9.4-12.3); Platelet Count 245 K/uL (130-400); RDW Coefficient of Variation 15.7 % (11.5-14.5); RDW Standard Deviation 47.8 fL (36.4-46.3); Red Blood Count 3.77 M/uL (3.93-5.22); White Blood Count 10.09 K/ul (4.8-10.8)
--- NOTE | 2022-06-08 07:43 | Obstetrical Progress Note ---
Date of Service June 08, 2022 Assessment & Plan (1) state: Day 2 s/p . Doing well. Stable for discharge (2) Gestational hypertension: BP mostly normalized, continue to monitor. No s/sx preeclampsia at this time. (3) Insulin controlled gestational diabetes mellitus (GDM) during : Subjective Ambulation: ambulating normally Voiding: no voiding problems Passing Gas:: Yes Diet Tolerance:: regular diet Lochia:: Moderate Feeding Type:: breast feeding Physical Exam Constitutional WD/WN, vitals as above Respiratory normal respiratory effort; no respiratory distress and no labored breathing Gastrointestinal (Abdomen) Inspection/Auscultation: abdomen normal to inspection; abdomen not distended Percussion/Palpation: abdomen soft; abdomen nontender, no guarding and abdomen not rigid Genitourinary OB Exam Abdomen: + fundal height Fundus: + firm and + relation to umbilicus (Below); not tender or not boggy Results & Data ([facility]) Vital Signs (Past 12 Hours) Vital Signs Temp Pulse Pulse Resp BP BP Pulse Ox 06/08/22 04:20 80 133/85 06/08/22 02:00 80 132/83 06/08/22 00:00 36.7 C 69 18 150/89 H 99
[2022-06-08] MEDS: DOCUSATE SODIUM 100 MG CAP PO SCH (08:27)
[2022-06-08] MEDS: IBUPROFEN 600 MG TAB PO PRN (08:27)
[2022-06-08] MEDS: PRENATAL VITAMIN 1 TAB PO SCH (08:27)
[2022-06-08] MEDS: FLUTICASONE/VILANTEROL 100/25MCG 14 PUFFS/INHALER INH SCH (09:00)
[2022-06-08] MEDS ORDERED: oxyCODONE IR HOME PACK PO PRN (13:58)
== END 2022-06-08 14:50 | disposition home or self-care (01) | DRG 807 ==
LOC: OPB 13:09 → 4S1 13:10 → 4E2 06-07 01:00